=== PATIENT | female | born 1980 | race Caucasian/White ===

== ENCOUNTER 2017-04-17 21:54 | Emergency (ER) | payer OTHER ==
[~2017-04-17] VITALS: Ht 162.6 cm; Wt 86.4 kg
[~2017-04-17 21:54] MED LIST: LORA2TAB PO
[2017-04-17 21:58] VITALS: BP 131/79; PULSE 83; RESP 17; O2SAT 99
--- NOTE | 2017-04-17 22:06 | ED.REPORT ---
HPI-General Illness Date of Service Apr 17, 2017 ED Provider: Dr. Smith 37 y/o female with a hx of IV heroin and meth use presents to the ED complaining of abscess on her legs, onset a few days ago. The pt is concerned because her friend had similar sx and was diagnosed with an infection. She does not inject in her legs. She also reports diaphoresis, malaise and bilateral foot swelling. She denies fever and chills. The pt has tried rehab before but does not show interest in going to a rehab center tonight. Nursing Notes Stated Complaint: BILATERAL LEG INFECTION Chief Complaint: Skin Rash/Abscess Nursing Notes Reviewed: Yes Allergies: Coded Allergies: Sulfa (Sulfonamide Antibiotics) (Verified Allergy, Unknown, 04/15/16) Scheduled Clindamycin (Clindamycin) 300 Mg Capsule 300 MG PO TID Mupirocin (Mupirocin Ointment) 22 Gm Oint...g. 1 APPLIC TOP QID Scheduled PRN Lorazepam (Lorazepam) 2 Mg Tablet 2 MG PO TID PRN PRN For Anxiety General Time Seen by MD: 22:06 Chief Complaint Other (Abscess on legs) Hx Obtained From: Patient Arrived By: Walk-in Sudden in Onset?: Yes Onset Occurred: 3 days ago Symptom Duration: Since onset Severity: Current: No pain currently Severity: Maximum: No pain Recent Healthcare: No recent doctor visit Similar Sx Previous: No Past Medical History Past Medical History alcohol use Heroin use Meth use Past Surgical History none reported Smoking History Current Every Day Smoker Social History Alcohol Use: Denies alcohol use Drug Use: IV drugs Ambulatory Status Independent Review of Systems Reports: Abscess on both legs Full Review of Systems Constitutional: Reports: Malaise, Denies: Chills, Fever Musculoskeletal: Reports: Extremity swelling (both feet) Skin: Reports Diaphoresis Complete sys rev & neg: except as marked. Physical Exam Vital Signs Vital Signs Date Time Temp Pulse Resp B/P Pulse Ox O2 Delivery O2 Flow Rate FiO2 04/17/17 23:16 36.5 89 18 128/86 100 Room Air 04/17/17 21:58 36.3 83 17 131/79 99 Room Air Initial VS: Reviewed Head / Eyes: Atraumatic, Normocephalic Neck: Supple, Non-tender, Full range of motion Respiratory: Breath sounds normal, No respiratory distress Cardiovascular: Intact distal pulses Abdomen / GI: Soft, Non-tender Extremities: Vascular intact, Neuro intact, No swelling, No tenderness Skin: Warm, Dry, No cyanosis Neurologic: Alert, Oriented, Nonfocal General/Constitutional: Awake, Alert Diaphoretic Head / Eyes: Atraumatic, Normocephalic Eyes without flame hemorrhage Cardiovascular: Regular rhythm, Heart sounds NL, No gallop, No murmurs Heart Rate / Rhythm: Positive: Tachycardia Wrist / Hand: Atraumatic, Full range of motion, No deformity, Neurologic intact , Vascular intact Nail without splinter hemorrhage. Lower Extremity / Pelvis / MS: Atraumatic, Full range of motion, No swelling, No deformity, Neurologic intact, Vascular intact 1cm lesion on lateral right calf and 3cm surrounding [place] erythema. Similar smaller lesion on anterior left lazaro. Interpretation & Diagnostics Lab Results Interpretation Result Diagram: 04/17/175 04/17/175 Test 04/17/17 22:45 White Blood Count 7.7th/mm3 (3.8-10.1) Red Blood Count 4.10mil/mm3 (3.90-5.20) Hemoglobin 11.0g/dL (12.0-15.6) Hematocrit 34.6% (35.0-46.0) Mean Corpuscular Volume 84.4fL (81-100) Mean Corpuscular Hemoglobin 26.8pg (27.0-35.0) Mean Corpuscular Hemoglobin Concent 31.8% (32.0-37.0) Red Cell Distribution Width 14.4% (12.3-15.4) Platelet Count 419bil/L (150-400) Neutrophils (%) (Auto) 52.1% (40-74) Lymphocytes (%) (Auto) 37.8% (14-46) Monocytes (%) (Auto) 7.4% (4-12) Eosinophils (%) (Auto) 2.1% (0-5) Basophils (%) (Auto) 0.5% (0-3) Band Neutrophils % 0% (1-5) Erythrocyte Sedimentation Rate 38mm/hr (0-32) Sodium Level 136mEq/L (134-144) Potassium Level 3.6mEq/L (3.5-5.2) Chloride Level 99mEq/L (97-108) Carbon Dioxide Level 26mmol/L (18-29) Blood Urea Nitrogen 17mg/dL (6-20) Creatinine 0.63mg/dL (0.57-1.00) Estimat Glomerular Filtration Rate 151mL/min (>59) Glucose Level 104mg/dL (60-99) Calcium Level 9.2mg/dL (8.5-10.1) Total Bilirubin 0.2mg/dL (0.0-1.2) Aspartate Amino Transf (AST/SGOT) 19U/L (0-50) Alanine Aminotransferase (ALT/SGPT) 17U/L (0-32) Alkaline Phosphatase 93U/L (25-150) Total Protein 7.2g/dL (6.4-8.4) Albumin 3.8g/dL (3.4-5.0) Hold Storey Top Tube Received (Received) Re-Eval/Medical Decision Med Decision/Clinical Course 37-year-old female with ongoing IV drug abuse presents with scabs cellulitic lesions on both legs. These appear to be secondary to shaving injuries, and she has no other secondary signs of endocarditis. Begun with mupirocin ointment, clindamycin orally, and plan for follow-up with PCP. Counseled to discontinue IV drug use, she is interested in doing. Provided with [facility] Time of Eval: 22:12 Re-Evaluation/Progress Note: Discussed diagnosis and plan to discharge. Pt understands and agrees with the plan. F/U instructions and RTER warning given. All questions addressed. Counseled Regarding: Diagnosis, Need for follow-up, When/why to return to ED Discharge & Departure Primary Impression: Cellulitis Site of cellulitis: extremity Site of cellulitis of extremity: lower extremity Laterality: right Qualified Code: L03.115 - Cellulitis of right lower limb Additional Impression: Intravenous drug abuse Disposition: Home Discharge Condition All VS Reviewed: Yes Condition: Stable Additional Instructions: Begin mupirocin ointment four times daily to the affected areas and then cover with Band-Aid. Clindamycin two capsules three times daily for ten days Follow-up with your doctor in the office. Follow-up at residency clinic if you need a local physician for routine medical care. It is critical that you stop using injection drugs. Go to [place] [facility] if needed. (see card) Return for any immediate issues. Good luck in your recovery. Referrals: [facility] Scribe Attestation Portions of this note were transcribed by Ivy Heath. I, , personally performed the history, physical exam and medical decision- making;I reviewed and confirmed the accuracy of the information in the transcribed note. Signed by Rupert Zacarias. 04/17/17 23:06 Wei Smith MD Apr 17, 2017 22:06 Ivy Heath Apr 17, 2017 22:20
[2017-04-17] MEDS ORDERED: Mupirocin 2% 22 Gm Ointment TOPICAL ONE (22:20)
[2017-04-17] MEDS ORDERED: MUPI22OI2 TOP (22:25)
[2017-04-17] MEDS ORDERED: CLIN-78 PO (22:25)
[2017-04-17 22:58] LABS: BASOPHILS % (AUTO) 0.5 % (0-3); EOSINOPHILS % (AUTO) 2.1 % (0-5); MONOCYTES % (AUTO) 7.4 % (4-12); Mean Corpuscular Hemoglobin 26.8 pg (27.0-35.0); Mean Corpuscular Volume 84.4 fL (81-100); NEUTROPHILS % (AUTO) 52.1 % (40-74); Platelet Count 419 bil/L (150-400)
[2017-04-17 23:16] VITALS: BP 128/86; PULSE 89; RESP 18; O2SAT 100
[2017-04-17 23:18] LABS: ERYTHROCYTE SEDIMENTATION RATE 38 mm/hr (0-32)
== END 2017-04-17 23:17 | disposition home or self-care (01) ==
LOC: SED 21:54
DX: L03.115 Cellulitis of right lower limb (principal); F19.10 Other psychoactive substance abuse, uncomplicated; F17.200 Nicotine dependence, unspecified, uncomplicated; Z88.2 Allergy status to sulfonamides